=== PATIENT | female | born 1950 | race African-American/Black ===

== ENCOUNTER 2017-10-27 09:31 | Emergency (ER) | payer MEDICARE ==
[~2017-10-27] VITALS: Ht 165.1 cm; Wt 88.5 kg
[2017-10-27 09:51] VITALS: BP 133/82
--- NOTE | 2017-10-27 11:09 | Diagnostic Imaging Report ---
Indications: Dizziness Technique: Spiral acquisitions obtained through the brain. Angled axial and coronal 5 x 5 mm slices were reconstructed. Total dose length product 1284.6 mGycm. CTDI vol(s) 70.38 mGy. Dose reduction achieved using automated exposure control Comparison: None. Findings: No acute intrarenal hemorrhage or edema. No mass effect nor midline shift. Normal size ventricles and extra-axial CSF spaces. Visualized orbits and sinuses are unremarkable. The calvarium is intact. Normal burnette-white differentiation. Impression: Negative The CT scanner at [facility] is accredited by the [employer] and the scans are performed using protocols designed to limit radiation exposure to as low as reasonably achievable to attain images of sufficient resolution adequate for diagnostic evaluation.
[2017-10-27 11:43] VITALS: BP 133/82
--- NOTE | 2017-10-27 15:26 | Emergency Room Report ---
History of Present Illness General Chief Complaint: Hypertension Source: Patient Present Illness HPI Ms. George is a very pleasant 67 yo female who has had memory loss, lightheadedness, palpitations and elevated blood pressure for several weeks. Memory loss began over one month ago. She forgets occurrences that just happened moments ago. She is forgetting her intended task. She has had trouble driving home. 2 weeks ago she has noticed lightheadedness without paralysis, parethesias or trouble walking. She denies speech difficulty. She has been evaluated by Dr. Gray PCP with normal lab studies. Last week she was referred to urgent care for CT head. Oncology Specialist was unavailable to perform the test. consequently she was referred to the ED. Her PCP has added Losartan to amlodipine regimen. Allergies: Coded Allergies: No Known Allergies (Unverified , 10/27/17) Patient History Past Medical History: old chart reviewed Past Surgical History: other - reviewed with patient Social History: Reports: alcohol use - rarely; Denies: smoking Social History Narrative lives alone, semi-retired corporate legal intern Nursing Documentation-[facility] Past Medical History: No History, Except For Hx Hypertension: Yes Review of Systems Constitutional: Denies: fever, malaise Cardiovascular: Reports: palpitations; Denies: chest pain All Other Systems: negative except mentioned in HPI Physical Exam Vital Signs Date Time Temp Pulse Resp B/P (MAP) Pulse Ox O2 Delivery O2 Flow Rate FiO2 10/27/17 09:37 97.8 91 16 138/85 95 Room Air 97.9 Sp02 EP Interpretation: reviewed, normal General Appearance: no apparent distress, alert, GCS 15, non-toxic Head: normocephalic, atraumatic Eyes: bilateral eye normal inspection ENT: hearing grossly normal, normal pharynx, no angioedema, normal voice Neck: full range of motion, supple/symm/no masses Respiratory: chest non-tender, lungs clear, normal breath sounds, speaking full sentences Cardiovascular #1: regular rate, rhythm, no edema, systolic murmur Gastrointestinal: normal bowel sounds, non tender, soft, no guarding, no rebound Musculoskeletal: back normal, gait/station normal, normal range of motion Neurologic: alert, oriented x3, responsive, motor strength/tone normal, sensory intact, normal gait, speech normal Psychiatric: judgement/insight normal, memory normal, mood/affect normal, no suicidal/homicidal ideation Skin: normal color, no rash, warm/dry, well hydrated Lymphatic: no adenopathy Medical Decision Making Diagnostic Impression: Primary Impression: Palpitation Additional Impressions: Dizziness Memory loss Hypertension ER Course Ms. George presents with several concerns. Memory loss possibly due to early dementia. No indication of TIA or ACS with hx. I reviewed outpatient EKG provided by patient obtained in outpatient setting. I do suspect hypertensive urgency leading to lightheadedness. Patient understood return precautions. She has close f/u scheduled with Dr. Albarran in [address]/MRI/US Diagnostic Results CT/MRI/US Diagnostic Results : Imaging Test Ordered: CT had Impression no acute process Last Vital Signs Date Time Temp Pulse Resp B/P (MAP) Pulse Ox O2 Delivery O2 Flow Rate FiO2 10/27/17 11:43 97.9 94 16 133/82 99 Room Air 208.2 Disposition: HOME, SELF-CARE Condition: Stable Patient Instructions: Dizziness, [id number] AILIN GR Oct 27, 2017 15:26
== END 2017-10-27 11:48 | disposition home or self-care (01) ==
LOC: EMR 10:06
DX: R00.2 Palpitations (principal); R42 Dizziness and giddiness; R41.3 Other amnesia; I10 Essential (primary) hypertension
CPT/HCPCS: 70450; 99284